=== PATIENT | female | born 1985 | race Caucasian/White ===

== ENCOUNTER → 2022-06-22 10:50 | Outpatient (BNVA) | payer BC, SELFPAY | PROVIDERS: Visit Provider Nurse Practitioner Women's Health | DX: Z00.00 Encounter for general adult medical examination without abnormal findings (principal); Z12.4 Encounter for screening for malignant neoplasm of cervix; N63.20 Unspecified lump in the left breast, unspecified quadrant | CPT/HCPCS: 87624 ==

== ENCOUNTER 2022-07-22 09:16 | Outpatient (CLI) | payer BC, SELFPAY ==
--- NOTE | 2022-07-22 09:28 | MM_ITS ---
WS: [id number] DIAGNOSTIC BILATERAL DIGITAL BREAST TOMOSYNTHESIS MAMMOGRAPHY WITH CAD Bilateral breast ultrasound, limited HISTORY: Palpable area LEFT breast. COMPARISON: None available. TECHNIQUE: Bilateral craniocaudad, mediolateral oblique, and mediolateral views are submitted with to mosynthesis and SM. Spot compression views bilaterally. Computer aided detection utilized. Breast composition: The breasts are heterogeneously dense, which may obscure small masses. 7 mm asymm etry in the lateral RIGHT breast probably at or just below the nipple line but very difficult to visu kishore on the lateral projection. Palpable area in the LEFT breast in the inferior medial region. Ther e is some very mild architectural distortion. No mass. There is also very mild increased density post erior to the LEFT nipple. Bilateral breast ultrasound, limited. RIGHT: No abnormality in the RIGHT breast from 7-10 o'clock in the area of the mammographic abnormali ty. LEFT breast: No abnormality posterior to the nipple or at 7:00 in the region of the palpable abnormal ity. MM/[place] [id number] IMPRESSION: BI-RADS: 3-Probably Benign FOLLOW UP: 6 Month Follow-up 1. Recommend RIGHT diagnostic mammogram follow-up in 6 months and possible ult rasound to reevaluate the 7 mm asymmetry near 9:00. This may be a lymph node. N o ultrasound abnormality was identified. 2. No abnormality in the LEFT breast in the region of the palpable abnormality .
--- NOTE | 2022-07-22 09:59 | US_ITS ---
WS: [id number] DIAGNOSTIC BILATERAL DIGITAL BREAST TOMOSYNTHESIS MAMMOGRAPHY WITH CAD Bilateral breast ultrasound, limited HISTORY: Palpable area LEFT breast. COMPARISON: None available. TECHNIQUE: Bilateral craniocaudad, mediolateral oblique, and mediolateral views are submitted with to mosynthesis and SM. Spot compression views bilaterally. Computer aided detection utilized. Breast composition: The breasts are heterogeneously dense, which may obscure small masses. 7 mm asymm etry in the lateral RIGHT breast probably at or just below the nipple line but very difficult to visu kishore on the lateral projection. Palpable area in the LEFT breast in the inferior medial region. Ther e is some very mild architectural distortion. No mass. There is also very mild increased density post erior to the LEFT nipple. Bilateral breast ultrasound, limited. RIGHT: No abnormality in the RIGHT breast from 7-10 o'clock in the area of the mammographic abnormali ty. LEFT breast: No abnormality posterior to the nipple or at 7:00 in the region of the palpable abnormal ity. US/US breast BI limited* [id number] IMPRESSION: BI-RADS: 3-Probably Benign FOLLOW UP: 6 Month Follow-up 1. Recommend RIGHT diagnostic mammogram follow-up in 6 months and possible ult rasound to reevaluate the 7 mm asymmetry near 9:00. This may be a lymph node. N o ultrasound abnormality was identified. 2. No abnormality in the LEFT breast in the region of the palpable abnormality .
== END 2022-07-22 09:17 | disposition home or self-care (01) ==
PROVIDERS: Visit Provider Nurse Practitioner Women's Health
DX: N64.89 Other specified disorders of breast; N63.25 Unspecified lump in the left breast, overlapping quadrants
CPT/HCPCS: 76642; 77062; G0279

== ENCOUNTER → 2022-08-24 16:05 | Outpatient (BNVA) | payer OTHER, SELFPAY | PROVIDERS: PCP Family Medicine; Visit Provider Family Medicine | DX: Z00.00 Encounter for general adult medical examination without abnormal findings (principal) | CPT/HCPCS: 80053; 80061; 83036; 83721; 85025 ==

== ENCOUNTER 2022-11-29 09:02 | Outpatient (CLI) | payer OTHER, SELFPAY ==
[2022-11-29 09:44] LABS: Chol HDL Ratio 3.05 mg/dL (0.0-4.40); Cholesterol 171 mg/dL (0-200); HDL Cholesterol 56 mg/dL (60-100); LDL Cholesterol Calculated 82 mg/dL (50-129); LDL HDL Ratio 1.46 RATIO (0.00-3.22); Triglycerides 163 mg/dL (0-150)
== END 2022-11-29 09:03 | disposition home or self-care (01) ==
PROVIDERS: PCP Family Medicine; Visit Provider Family Medicine
DX: E78.1 Pure hyperglyceridemia (principal)
CPT/HCPCS: 36415; 80061

== ENCOUNTER 2023-01-24 10:31 | Outpatient (CLI) | payer OTHER, SELFPAY ==
--- NOTE | 2023-01-24 11:49 | MM_ITS ---
WS: [id number] RIGHT diagnostic DIGITAL TOMOSYNTHESIS MAMMOGRAPHY WITH CAD. RIGHT breast ultrasound, limited HISTORY: 6 month follow-up 7 mm asymmetry RIGHT breast. COMPARISON: 07/22/2022 Technique: CC, MLO and ML views. Spot compression RIGHT CC. Breast composition: There are scattered areas of fibroglandular density. The asymmetry persists in t he lateral RIGHT breast just below the nipple line measuring approximately 7 mm. No interval change. Not definitely seen on the lateral projection. RIGHT breast ultrasound, limited. Ultrasound directed to the lateral RIGHT breast just below the nipple line. No abnormality is identif ied. MM/[place] [id number] IMPRESSION: BI-RADS: 3-Probably Benign FOLLOW UP: 6 Month Follow-up Patient to return in 6 months for bilateral yearly evaluation. The asymmetry in the lateral RIGHT breast will be reevaluated at that time. 1
--- NOTE | 2023-01-24 12:38 | US_ITS ---
WS: [id number] RIGHT diagnostic DIGITAL TOMOSYNTHESIS MAMMOGRAPHY WITH CAD. RIGHT breast ultrasound, limited HISTORY: 6 month follow-up 7 mm asymmetry RIGHT breast. COMPARISON: 07/22/2022 Technique: CC, MLO and ML views. Spot compression RIGHT CC. Breast composition: There are scattered areas of fibroglandular density. The asymmetry persists in t he lateral RIGHT breast just below the nipple line measuring approximately 7 mm. No interval change. Not definitely seen on the lateral projection. RIGHT breast ultrasound, limited. Ultrasound directed to the lateral RIGHT breast just below the nipple line. No abnormality is identif ied. US/US breast RT limited* [id number] IMPRESSION: BI-RADS: 3-Probably Benign FOLLOW UP: 6 Month Follow-up Patient to return in 6 months for bilateral yearly evaluation. The asymmetry in the lateral RIGHT breast will be reevaluated at that time. 1
== END 2023-01-24 10:32 | disposition home or self-care (01) ==
PROVIDERS: PCP Family Medicine; Visit Provider Nurse Practitioner Women's Health
DX: N63.10 Unspecified lump in the right breast, unspecified quadrant (principal); N64.89 Other specified disorders of breast
CPT/HCPCS: 76642; 77061; G0279

== ENCOUNTER → 2023-01-25 09:26 | Outpatient (BNVA) | payer OTHER, SELFPAY | PROVIDERS: PCP Family Medicine; Visit Provider Nurse Practitioner Family | DX: U07.1 COVID-19 (principal) | CPT/HCPCS: 87426 ==

== ENCOUNTER → 2023-03-07 15:20 | Outpatient (BNVA) | payer OTHER, SELFPAY | PROVIDERS: PCP Family Medicine; Visit Provider Podiatrist Foot & Ankle Surgery | DX: M72.2 Plantar fascial fibromatosis (principal); M24.572 Contracture, left ankle; B35.1 Tinea unguium | CPT/HCPCS: 73630 ==

== ENCOUNTER 2023-06-13 11:27 | Outpatient (CLI) | payer OTHER, SELFPAY ==
[2023-06-13 12:42] LABS: Estmated Average Glucose 114; Hemoglobin A1C 5.6 % (4.0-6.0)
[2023-06-13 12:49] LABS: Free T4 Free Thyroxine 0.99 ng/dL (0.82-1.77)
[2023-06-13 14:00] LABS: Follicle Stimulating Hormone 6.2 mIU/mL; Luteinizing Hormone 6.3 mIU/mL (0.5-41.7); Prolactin 9.13 ng/mL (4.8-23.3)
[2023-06-14 11:04] LABS: Insulin ( Reference Lab Test) 22.2 uIU/mL
== END 2023-06-13 11:28 | disposition home or self-care (01) ==
LOC: LAB 11:30
PROVIDERS: Nurse Practitioner Women's Health; PCP Family Medicine; Visit Provider Family Medicine
DX: N92.6 Irregular menstruation, unspecified (principal)
CPT/HCPCS: 82670; 83001; 83002; 83036; 83525; 84146; 84439; 84443; 84481

== ENCOUNTER → 2023-08-15 15:40 | Outpatient (BNVA) | payer OTHER, SELFPAY | PROVIDERS: PCP Family Medicine; Visit Provider Family Medicine | DX: E28.2 Polycystic ovarian syndrome | CPT/HCPCS: 84403 ==

== ENCOUNTER 2023-11-14 08:35 | Outpatient (CLI) | payer OTHER, SELFPAY ==
--- NOTE | 2023-11-14 09:00 | MM_ITS ---
WS: [id number] DIAGNOSTIC BILATERAL DIGITAL BREAST TOMOSYNTHESIS MAMMOGRAPHY WITH CAD RIGHT breast ultrasound, limited HISTORY: Follow-up asymmetry in the lateral RIGHT breast. COMPARISON: 01/24/2023 and 07/22/2022 TECHNIQUE: Bilateral craniocaudad, mediolateral oblique, and mediolateral views are submitted with to mosynthesis and SM. RIGHT MLO and RIGHT CC spot films. Computer aided detection utilized. Breast composition: There are scattered areas of fibroglandular density. 8 mm slightly lobulated asym metry in the lateral RIGHT breast. This is not definitely seen on the MLO projection or the ultrasoun d prior imaging exams. No new mass. RIGHT breast ultrasound, limited. The asymmetry in the lateral RIGHT breast is not identified again by ultrasound. MM/[place] [id number] IMPRESSION: BI-RADS: 3-Probably Benign FOLLOW UP: 6 Month Follow-up Recommend diagnostic RIGHT breast ultrasound in 6 months. Ultrasound may be nec essary also if the asymmetry changes. 2-year follow-up necessary to document st ability of this asymmetry.
--- NOTE | 2023-11-14 09:15 | US_ITS ---
NOTE: Report was unsigned for reason: Order was edited. Original Signature date and time was: 11/14/23 @ 10:55 DIAGNOSTIC BILATERAL DIGITAL BREAST TOMOSYNTHESIS MAMMOGRAPHY WITH CAD RIGHT breast ultrasound, limited HISTORY: Follow-up asymmetry in the lateral RIGHT breast. COMPARISON: 01/24/2023 and 07/22/2022 TECHNIQUE: Bilateral craniocaudad, mediolateral oblique, and mediolateral views are submitted with tomosynthesis and SM. RIGHT MLO and RIGHT CC spot films. Computer aided detection utilized. Breast composition: There are scattered areas of fibroglandular density. 8 mm slightly lobulated asymmetry in the lateral RIGHT breast. This is not definitely seen on the MLO projection or the ultrasound prior imaging exams. No new mass. RIGHT breast ultrasound, limited. The asymmetry in the lateral RIGHT breast is not identified again by ultrasound. IMPRESSION: BI-RADS: 3-Probably Benign FOLLOW UP: 6 Month Follow-up Recommend diagnostic RIGHT breast ultrasound in 6 months. Ultrasound may be necessary also if the asymmetry changes. 2-year follow-up necessary to document stability of this asymmetry. CAMILA
== END 2023-11-14 08:36 | disposition home or self-care (01) ==
LOC: RAD 08:39
PROVIDERS: PCP Family Medicine; Visit Provider Family Medicine
DX: N64.89 Other specified disorders of breast (principal); R92.321 Mammographic fibroglandular density, right breast
CPT/HCPCS: 76642; 77062; G0279

== ENCOUNTER 2023-12-28 16:34 | Outpatient (CLI) | payer OTHER, SELFPAY ==
--- NOTE | 2023-12-28 16:39 | XR_ITS ---
WS: [id number] XR sacrum coccyx min 2V [id number] REASON FOR EXAM: S30.0XXA - Contusion of lower back and pelvis, initial en... FINDINGS: The sacrum is intact without fracture. There is a significant anterior angulation at the sacrococcygeal junction however this does not appea r to be an acute injury. The deformity could be due to an old healed injury or congenital variation. XR/XR sacrum coccyx min 2V [id number] IMPRESSION: Sacrococcygeal deformity as above. Patient should be exquisitely tender if this were to represent an acute abnorma lity.
== END 2023-12-28 16:35 | disposition home or self-care (01) ==
LOC: RAD 16:36
PROVIDERS: PCP Family Medicine; Visit Provider Nurse Practitioner Family
DX: S30.0XXA Contusion of lower back and pelvis, initial encounter (principal); X58.XXXA Exposure to other specified factors, initial encounter
CPT/HCPCS: 72220

== ENCOUNTER 2024-07-16 11:54 | Outpatient (CLI) | payer OTHER, SELFPAY ==
--- NOTE | 2024-07-16 11:59 | XRR_ITS ---
PROCEDURE INFORMATION: Exam: XR Sacrum and Coccyx, 2 or More Views Exam date and time: 07/16/2024 12:07 PM Age: 39 years old Clinical indication: Pain in coccyx area; Patient HX: Pain bilat hips and tailbone area PT fell in October 2023 , FX coccyx; Additional info: M53.3 - sacrococcygeal disorders, not elsewhere classified TECHNIQUE: Imaging protocol: XR of the sacrum and coccyx, 2 or more views. COMPARISON: CR XR sacrum coccyx min 2V [id number] 12/28/2023 4:43 PM FINDINGS: Bones/joints: Normal. No acute fracture. No lytic or sclerotic bone lesion. Soft tissues: Normal. XR/XR sacrum coccyx min 2V [id number] IMPRESSION: No acute findings.
--- NOTE | 2024-07-16 11:59 | XRR_ITS ---
PROCEDURE INFORMATION: Exam: XR Bilateral Hips Exam date and time: 07/16/2024 12:07 PM Age: 39 years old Clinical indication: Hip pain; Bilateral; Patient HX: Pain bilat hips and tailbone area PT fell in October 2023 , FX coccyx; Additional info: M25.551 - pain in right hip TECHNIQUE: Imaging protocol: Radiologic exam of the bilateral hips. Views: 2 views of hips with pelvis when performed. COMPARISON: CR XR sacrum coccyx min 2V [id number] 07/16/2024 12:07 PM FINDINGS: Bones/joints: Unremarkable. No acute fracture. Soft tissues: Unremarkable. XR/XR hip BI m 5V wo/w pel* [id number] IMPRESSION: No acute findings.
== END 2024-07-16 11:55 | disposition home or self-care (01) ==
LOC: RAD 11:55
PROVIDERS: PCP Nurse Practitioner Family; Visit Provider Nurse Practitioner Family
DX: M25.551 Pain in right hip (principal); M25.552 Pain in left hip; M53.3 Sacrococcygeal disorders, not elsewhere classified; I15.2 Hypertension secondary to endocrine disorders; E78.1 Pure hyperglyceridemia
CPT/HCPCS: 72220; 73523; 80053; 80061; 82306; 82607; 83036; 83735; 84403; 84443; 85025

== ENCOUNTER 2024-08-08 12:44 | Outpatient (CLI) | payer OTHER, SELFPAY ==
[2024-08-08 15:27] LABS: Anion Gap 17.7 (5-19); Blood Urea Nitrogen 17 mg/dL (6-20); Calcium 9.5 mg/dL (8.5-10.5); Carbon Dioxide 24 mmol/L (22-29); Chloride 100 mmol/L (98-107); Glucose 98 mg/dL (65-115); Osmolality Calculated 286 mOsm/kg (285-295); Potassium 4.7 mmol/L (3.5-5.1); Sodium 137 mmol/L (136-145)
== END 2024-08-08 12:45 | disposition home or self-care (01) ==
PROVIDERS: PCP Nurse Practitioner Family; Visit Provider Nurse Practitioner Family
DX: R94.4 Abnormal results of kidney function studies (principal)
CPT/HCPCS: 36415; 80048

== ENCOUNTER → 2025-01-07 16:22 | Outpatient (BNVA) | payer OTHER, SELFPAY | PROVIDERS: PCP Nurse Practitioner Family; Visit Provider Nurse Practitioner Family | DX: I15.2 Hypertension secondary to endocrine disorders (principal); E55.9 Vitamin D deficiency, unspecified | CPT/HCPCS: 80053; 82306 ==

== ENCOUNTER 2025-02-22 12:01 | Outpatient (CLI) | payer OTHER, SELFPAY ==
[2025-02-22 13:13] LABS: Anion Gap 11.9 (5-19); Blood Urea Nitrogen 16 mg/dL (6-20); Calcium 9.3 mg/dL (8.5-10.5); Carbon Dioxide 27 mmol/L (22-29); Chloride 100 mmol/L (98-107); Glucose 109 mg/dL (65-115); Osmolality Calculated 282 mOsm/kg (285-295); Potassium 3.9 mmol/L (3.5-5.1); Sodium 135 mmol/L (136-145)
== END 2025-02-22 12:02 | disposition home or self-care (01) ==
PROVIDERS: PCP Nurse Practitioner Family; Visit Provider Nurse Practitioner Family
DX: R94.4 Abnormal results of kidney function studies (principal)
CPT/HCPCS: 36415; 80048